=== PATIENT | male | born 1935 | race Caucasian/White ===

== ENCOUNTER 2024-04-17 07:23 | Outpatient (CLI) | payer MEDICARE | END 2024-04-17 07:24 | disposition home or self-care (01) | LOC: BICCT 07:23 | PROVIDERS: ATTEND Family Medicine | DX: R10.9 Unspecified abdominal pain (principal); N40.0 Benign prostatic hyperplasia without lower urinary tract symptoms; K63.9 Disease of intestine, unspecified; K22.9 Disease of esophagus, unspecified | CPT/HCPCS: 74178 ==